=== PATIENT | female | born 2000 | race Caucasian/White ===

== ENCOUNTER 2021-09-26 19:33 | Emergency (ER) | payer OTHER ==
[~2021-09-26] VITALS: Ht 157.5 cm; Wt 72.3 kg
[2021-09-26 19:50] VITALS: BP 142/79
[2021-09-26] MEDS ORDERED: KETOROLAC 60 MG/2 ML VIAL IM ONE (20:20)
[2021-09-26] MEDS ORDERED: IBUP-2213 PO (20:30)
--- NOTE | 2021-09-26 20:40 | NUR ---
PT FROM TRIAGE TO ED1, HERE FOR LEFT LEG PAIN NOT ASSOCIATED WITH TRAUMA.
[2021-09-26 20:41] VITALS: BP 140/81
--- NOTE | 2021-09-26 20:55 | NUR ---
URINE HCG DONE PRIOR TO PAIM MEDICATION ADMINISTRATION, NEGATIVE RESULT.
--- NOTE | 2021-09-26 21:12 | NUR ---
CLEARED FOR DC WITH DR. KO, INSTRUCTIONS REINFORCED TO PATIENT. EXITED ED WITH STEADY GAIT AND STABLE VS
== END 2021-09-26 21:00 | disposition home or self-care (01) ==
LOC: MED 19:33
DX: M79.605 Pain in left leg (principal)
CPT/HCPCS: 96372; 99283; J1885